=== PATIENT | male | born 1995 | race Caucasian/White ===

== ENCOUNTER → 2017-02-23 | Outpatient (CLI) | payer BC ==
[~2017-02-23] MED LIST: FERR1TAB23 PO; IMD/2 PO; LTMOPS OPR; METH4PAK PO; PRED10TA PO
[2017-02-23 18:35] LABS: HEMATOCRIT 31.5 % (42-52); MEAN CELL VOLUME 86.8 fL (80-100); MEAN CORPUSCULAR HEMOGLOBIN 27.8 pg (25-34); MEAN CORPUSCULAR HGB CONC 32.1 g/dl (32-36); MEAN PLATELET VOLUME 7.8 fL (7.4-10.4); PLATELET COUNT 583 K/uL (130-400); RED BLOOD COUNT 3.63 M/uL (4.7-6.1); WHITE BLOOD COUNT 14.39 K/uL (4.8-10.8)
[2017-02-23 18:53] LABS: ALT/SGPT 50 U/L (12-78); AST/SGOT 28 U/L (15-37); BLOOD UREA NITROGEN 7 mg/dl (7-18); BUN/CREATININE RATIO 7.3 (10-20); C-REACTIVE PROTEIN 0.92 mg/dl (0-0.29); CALCIUM 7.9 mg/dl (8.5-10.1); CARBON DIOXIDE 30 mmol/L (21-32); CHLORIDE 105 mmol/L (98-107); CREATININE 0.89 mg/dl (0.60-1.40); GLUCOSE 126 mg/dl (70-99); POTASSIUM 3.8 mmol/L (3.5-5.1); SODIUM 139 mmol/L (136-145)
[2017-02-23 18:55] LABS: ALB/GLOB RATIO 0.7 (0.9-2); ALKALINE PHOSPHATASE 80 U/L (45-117)
[2017-02-23 19:38] LABS: BASO ABS # 0.14 K/uL (0-0.2); COMPLETE YES; EOS % 12.1 %; IG% 0.8 %; LYMPH % 12.3 %; LYMPH ABS # 1.77 K/uL (1.2-3.4); MONO % 11.6 %; NEUT % 62.2 %
== END | disposition home or self-care (01) ==
LOC: C.LAB 17:40
PROVIDERS: ATTEND Physician Assistant
DX: R19.7 Diarrhea, unspecified (principal); K62.5 Hemorrhage of anus and rectum

== ENCOUNTER → 2017-03-03 | Day surgery (SDC) | payer BC ==
[2017-02-26 10:45] VITALS: Ht 177.8 cm; Wt 69.5 kg
[~2017-03-03] VITALS: Ht 177.8 cm; Wt 69.5 kg
[~2017-03-03] MED LIST changes: +LIDOCAINE HCL 2% 2 ML VIAL (20MG/ML) ONE; +MIDAZOLAM HCL 1 MG/ML 2ML VIAL ONE; +PROPOFOL IV EMULSION 10 MG/ML 20 ML VIAL IV ONE
[2017-03-03 12:53] VITALS: TEMP 36.9
--- NOTE | 2017-03-03 13:05 | Endo History and Physical ---
History & Physical Date of Service: Mar 03, 2017. Chief Complaint: Rectal bleeding Referring Physician: Tony History of Present Illness 21 yo CM who presents for colonoscopy secondary to rectal bleeding. Past Surgical History Hx Cardiac Surgery: No Hx Internal Defibrillator: No Hx Pacemaker: No Hx Abdominal Surgery: No Hx of Implantable Prosthesis: No Hx Post-Op Nausea and Vomiting: No Hx Cancer Surgery: No Hx Thoracic Surgery: No Hx Orthopedic: No Hx Urinary Tract Surgery: No Family History IBD Social History Smoking Status: Never Smoker Hx Substance Use: No Hx Alcohol Use: Yes (OCCASIONAL/SOCIAL) Allergies Coded Allergies: No Known Allergies (Unverified , 03/03/17) Current Medications Reported Home Medications Medications Dose Route/Sig Max Daily Dose Days Date Category Lotemax (Loteprednol Etabonate) 150 Drops/10 Ml Susp 1 Drop OPR HS 02/26/17 Reported Iron (Ferrous Sulfate) 325 Mg Tab 1 Tab PO BID 02/26/17 Reported Vital Signs Weight (Kilograms): 69.55 Height (Feet): 5 Height (Inches): 10 Date Time Temp Pulse Resp B/P (MAP) Pulse Ox O2 Delivery O2 Flow Rate FiO2 03/03/17 12:53 36.9 91 18 116/67 (83) 100 Room Air Physical Exam General Appearance: WD/WN, no apparent distress Respiratory/Chest: Auscultation: breath sounds normal Cardiovascular: Heart Auscultation: RRR Abdomen: Bowel Sounds: normal Inspection & Palpation: soft, non-distended, no tenderness, guarding & rebound Assessment and Plan Assessment: 21 yo CM who presents for colonoscopy secondary to rectal bleeding. Plan: Proceed with colonoscopy.
--- NOTE | 2017-03-03 13:33 | Discharge Instructions ---
Endoscopy Patient Instructions Date / Procedure(s) Performed Mar 03, 2017. Colonoscopy Allergy Information Coded Allergies: No Known Allergies (Unverified , 03/03/17) Discharge Date / Findings Mar 03, 2017. Ulcerative pancolitis s/p biopsies Internal hemorrhoids Medication Instructions OK to resume all medications today as prescribed Reported Home Medications Medications Dose Route/Sig Max Daily Dose Days Date Category Lotemax (Loteprednol Etabonate) 150 Drops/10 Ml Susp 1 Drop OPR HS 02/26/17 Reported Iron (Ferrous Sulfate) 325 Mg Tab 1 Tab PO BID 02/26/17 Reported Provider Instructions Activity Restrictions - No exercising or heavy lifting for 24 hours. - Do not drink alcohol the day of the procedure. - Do not drive a car or operate machinery until the day after the procedure. - Do not make any important decisions or sign important papers in 24 hours after the procedure. Following Day: - Return to full activity which may include returning to work/school. Diet Start your diet with liquids and light foods (jello, soup, juice, toast). Then eat your usual diet if not nauseated. Treatment For Common After Affects For mild abdominal pain, bloating, or excessive gas: - Rest - Eat lightly - Lie on right side Follow-Up Information Follow-up with Tony as scheduled Anesthesia Information What You Should Know You have had a procedure that required some medicine to reduce anxiety and discomfort. This treatment is called moderate sedation. After receiving the treatment, you may be sleepy, but you will be able to breathe on your own. The effects of the treatment may last for several hours. Follow these instructions along with Activity/Diet recommendations noted above: * Do NOT do anything where dizziness or clumsiness would be dangerous. * Rest quietly at home today, then you can be up and about tomorrow. * Have a responsible person stay with you the rest of today. * You may have had an I.V. today. If so, you may take the dressing off later today. Recommendations Call your doctor if: * Trouble breathing * Continuous vomiting for more than 24 hours * Temperature above 101 degrees * Severe abdominal pain or bloating * Pain not relieved by pain medicine ordered * There is increased drainage or redness from any incision * A large amount of rectal bleeding greater than 2-3 tablespoons. (If you had a polyp/s removed or have hemorrhoids, a small amount of blood - from the rectum is to be expected.) * You have any unanswered questions or concerns. IN THE EVENT OF A SERIOUS EMERGENCY, GO TO THE NEAREST EMERGENCY ROOM Your discharge instructions were prepared by provider Ha Roa. Patient Instructions Signature Page Dany Amin Patient (or Guardian) Signature/Date: I have read and understand the instructions given to me by my caregivers. Caregiver/RN/Doctor Signature/Date: The above-named patient and/or guardian has received patient instructions on this date. + Original Patient Signature Page (only) stays with chart. Please make copy for patient.
--- NOTE | 2017-03-03 13:47 | GI REPORT ---
Procedure Date: 03/03/2017 12:50 PM Procedure: Colonoscopy Indications: Chronic diarrhea, Hematochezia Medicines: Monitored Anesthesia Care Complications: No immediate complications. Estimated Blood Loss: Estimated blood loss: none. Procedure: Pre-Anesthesia Assessment: - Prior to the procedure, a History and Physical was performed, and patient medications and allergies were reviewed. The patient's tolerance of previous anesthesia was also reviewed. The risks and benefits of the procedure and the sedation options and risks were discussed with the patient. All questions were answered, and informed consent was obtained. Prior Anticoagulants: The patient has taken no previous anticoagulant or antiplatelet agents. ASA Grade Assessment: II - A patient with mild systemic disease. After reviewing the risks and benefits, the patient was deemed in satisfactory condition to undergo the procedure. After I obtained informed consent, the scope was passed under direct vision. Throughout the procedure, the patient's blood pressure, pulse, and oxygen saturations were monitored continuously. The On-site loaner was introduced through the anus and advanced to the terminal ileum. The colonoscopy was performed without difficulty. The patient tolerated the procedure well. The quality of the bowel preparation was good. The terminal ileum, ileocecal valve, appendiceal orifice, and rectum were photographed. Findings: Inflammation characterized by erythema, loss of vascularity and confluent ulcerations was found in a continuous and circumferential pattern from the rectum to the cecum. This was severe in severity. Several random biopsies were obtained with cold forceps for histology in the entire colon. Fluid aspiration for cytology was performed in the entire colon. Non-bleeding internal hemorrhoids were found during retroflexion. The hemorrhoids were small. Impression: - Inflammation was found from the rectum to the cecum secondary to pancolitis ulcerative colitis. - Non-bleeding internal hemorrhoids. - Several random biopsies were obtained in the entire colon. - Fluid aspiration was performed. Recommendation: - Resume previous diet. - Continue present medications. - Await pathology results. - Return to GI office as previously scheduled. - Use Asacol HD 800 mg 2 tabs PO TID. Ha Roa DO 03/03/2017 1:46:41 PM This report has been signed electronically. Note Initiated On: 03/03/2017 12:50 PM I attest to the content of the Intraoperative Record and orders documented therein, exceptions below
[2017-03-03 14:05] VITALS: BP 114/78; PULSE 80; O2SAT 100
--- NOTE | 2017-03-03 15:03 | Anesthesiology Progress Note ---
Anesthesia Post Op Note Date & Time Mar 03, 2017 at 15:03 Vital Signs Pain Intensity: 0 Vital Signs Past 12 Hours Date Time Temp Pulse Resp B/P (MAP) Pulse Ox O2 Delivery O2 Flow Rate FiO2 03/03/17 14:05 80 18 114/78 (90) 100 Room Air 03/03/17 13:50 78 18 105/61 (76) 98 Room Air 03/03/17 13:35 99 18 101/60 (74) 97 Room Air 03/03/17 12:53 36.9 91 18 116/67 (83) 100 Room Air Notes Mental Status: alert / awake / arousable, participated in evaluation Pt Amnestic to Procedure: Yes Nausea / Vomiting: adequately controlled Pain: adequately controlled Airway Patency, RR, SpO2: stable & adequate BP & HR: stable & adequate Hydration State: stable & adequate Anesthetic Complications: no major complications apparent
== END | disposition home or self-care (01) ==
LOC: C.GI 12:19
PROVIDERS: ATTEND Internal Medicine
DX: K52.9 Noninfective gastroenteritis and colitis, unspecified (principal); K62.5 Hemorrhage of anus and rectum; K92.1 Melena; K64.8 Other hemorrhoids

== ENCOUNTER → 2017-03-16 | Outpatient (CLI) | payer BC ==
[~2017-03-16] MED LIST changes: -LIDOCAINE HCL 2% 2 ML VIAL (20MG/ML) ONE; -MIDAZOLAM HCL 1 MG/ML 2ML VIAL ONE; -PROPOFOL IV EMULSION 10 MG/ML 20 ML VIAL IV ONE
--- NOTE | 2017-03-16 07:23 | DIAGNOSTIC IMAGING REPORT ---
(LIVER) ABDOMEN LIMITED CLINICAL HISTORY: R94.5 abnormal liver function tests TECHNIQUE: Ultrasound COMPARISON STUDY: None FINDINGS: Normal liver. Normal pancreas. Gallbladder slightly contracted. No shadowing gallstones. Common bile duct 3 mm. Right kidney negative for hydronephrosis. IMPRESSION: Contracted gallbladder. Otherwise negative study The above report was generated using voice recognition software. It may contain grammatical, syntax or spelling errors. Electronically signed by: Michael Mendez M.D. 03/16/2017 7:22 AM Dictated Date/Time: 03/16/2017 7:21 AM
[2017-03-16 09:36] LABS: HEMATOCRIT 26.9 % (42-52); MEAN CELL VOLUME 86.5 fL (80-100); MEAN CORPUSCULAR HEMOGLOBIN 25.4 pg (25-34); MEAN CORPUSCULAR HGB CONC 29.4 g/dl (32-36); MEAN PLATELET VOLUME 7.8 fL (7.4-10.4); PLATELET COUNT 823 K/uL (130-400); RED BLOOD COUNT 3.11 M/uL (4.7-6.1)
[2017-03-16 10:13] LABS: COMPLETE YES; EOSINOPHIL % 2.6 %; LYMPH ABS # 4.79 K/uL (1.2-3.4); LYMPHOCYTE % 20.9 %; MYELOCYTE % 1.7 %; NEUTROPHILS % 63.5 %; POLYCHROMASIA 1+; TOXIC GRANULATION 1+
== END | disposition home or self-care (01) ==
LOC: C.ULTR 06:40
PROVIDERS: ATTEND Physician Assistant
DX: R94.5 Abnormal results of liver function studies (principal); K62.5 Hemorrhage of anus and rectum

== ENCOUNTER → 2017-03-31 | Outpatient (CLI) | payer BC ==
[2017-03-31 17:57] LABS: BASO % 0.8 %; BASO ABS # 0.07 K/uL (0-0.2); EOS % 5.6 %; HEMATOCRIT 27.9 % (42-52); IG% 0.2 %; LYMPH % 31.3 %; LYMPH ABS # 2.84 K/uL (1.2-3.4); MEAN CELL VOLUME 85.1 fL (80-100); MEAN CORPUSCULAR HEMOGLOBIN 24.7 pg (25-34); MEAN PLATELET VOLUME 7.7 fL (7.4-10.4); MONO % 25.3 %; NEUT % 36.8 %; PLATELET COUNT 367 K/uL (130-400); RED BLOOD COUNT 3.28 M/uL (4.7-6.1); WHITE BLOOD COUNT 9.08 K/uL (4.8-10.8)
[2017-03-31 18:18] LABS: ALT/SGPT 31 U/L (12-78); AST/SGOT 13 U/L (15-37); BLOOD UREA NITROGEN 11 mg/dl (7-18); BUN/CREATININE RATIO 14.5 (10-20); CALCIUM 8.5 mg/dl (8.5-10.1); CARBON DIOXIDE 29 mmol/L (21-32); CHLORIDE 104 mmol/L (98-107); CREATININE 0.77 mg/dl (0.60-1.40); GLUCOSE 77 mg/dl (70-99); POTASSIUM 3.4 mmol/L (3.5-5.1); SODIUM 142 mmol/L (136-145)
[2017-03-31 18:21] LABS: ALB/GLOB RATIO 0.8 (0.9-2); ALKALINE PHOSPHATASE 91 U/L (45-117)
[2017-03-31 18:24] LABS: COMPLETE YES; HYPOCHROMIA PRESENT
== END | disposition home or self-care (01) ==
LOC: C.LAB 17:14
PROVIDERS: ATTEND Physician Assistant
DX: K51.00 Ulcerative (chronic) pancolitis without complications (principal); D50.9 Iron deficiency anemia, unspecified

== ENCOUNTER → 2017-04-01 | Outpatient (CLI) | payer BC | END | disposition home or self-care (01) | LOC: C.LAB 09:31 | PROVIDERS: ATTEND Physician Assistant | DX: R94.5 Abnormal results of liver function studies (principal); K51.00 Ulcerative (chronic) pancolitis without complications ==